=== PATIENT | female | born 1985 | race Caucasian/White ===

== ENCOUNTER 2019-09-10 18:48 | Emergency (ER) | payer OTHER ==
[~2019-09-10] VITALS: Ht 165.1 cm; Wt 59.0 kg
[~2019-09-10 18:48] MED LIST: HYDR-3165 PO; PENI500T PO
[2019-09-10 19:06] VITALS: BP 113/71
[2019-09-10] MEDS ORDERED: HYDROmorphone PF 1 MG/ML DISP.SYRIN IV ONE ×2 (19:15→20:45)
[2019-09-10] MEDS ORDERED: ONDANSETRON PF 4 MG/2 ML VIAL. IVP ONE (19:15)
[2019-09-10] MEDS ORDERED: IOHEXOL 300 MG/ML 50 ML VIAL. ONE (19:30)
[2019-09-10] MEDS ORDERED: IOHEXOL 300 MG/ML 50 ML VIAL. INT CAT ONE (19:30)
--- NOTE | 2019-09-10 19:53 | PHYS DOC ---
Past History Past Medical History: Anemia, Anxiety, Depression, Other Additional Past Medical Histor: bleeding stomach ulcers Past Surgical History: , Gastric Bypass, Tonsillectomy Alcohol Use: None Drug Use: None Adult General Chief Complaint Chief Complaint: WOUND CHECK HPI HPI 34-year-old female presents with concern over J-tube dislodgment. The patient was changing clothes earlier today when she actually caught the end of her tube on the close. He pulled out a couple of inches and tore the sutures out of one side. The other side is still intact. The patient has had abdominal pain since that time. She called the surgeon and they recommended she come in and have it evaluated because it was dislodgment have to be replaced surgically. Patient further complains of intense nausea, but denies fever, chills or vomiting. She has no other complaints at this time. Review of Systems Review of Systems Constitutional: Denies fever or chills [] Eyes: Denies change in visual acuity, redness, or eye pain [] HENT: Denies nasal congestion or sore throat [] Respiratory: Denies cough or shortness of breath [] Cardiovascular: No additional information not addressed in HPI [] GI: The J-tube, nausea. Denies abdominal pain, vomiting, bloody stools or diarrhea [] : Denies dysuria or hematuria [] Musculoskeletal: Denies back pain or joint pain [] Integument: Denies rash or skin lesions [] Neurologic: Denies headache, focal weakness or sensory changes [] Endocrine: Denies polyuria or polydipsia [] All other systems were reviewed and found to be within normal limits, except as documented in this note. Current Medications Current Medications Current Medications Medications (Trade) Dose Ordered Sig/Eder Start Time Stop Time Status Last Admin Dose Admin Hydromorphone HCl (Dilaudid) 1 mg 1X ONCE 09/10/19 19:15 09/10/19 19:33 DC Iohexol (Omnipaque 300 Mg/ml) 50 ml 1X ONCE 09/10/19 19:30 09/10/19 19:31 UNV Ondansetron HCl (Zofran) 4 mg 1X ONCE 09/10/19 19:15 09/10/19 19:33 DC Allergies Allergies Allergies Coded Allergies Type Severity Reaction Last Updated Verified No Known Drug Allergies 09/10/19 No Physical Exam Physical Exam Constitutional: Well developed, well nourished, no acute distress, non-toxic appearance. [] HENT: Normocephalic, atraumatic, bilateral external ears normal, oropharynx moist, no oral exudates, nose normal. [] Eyes: PERRLA, EOMI, conjunctiva normal, no discharge. [] Neck: Normal range of motion, no tenderness, supple, no stridor. [] Cardiovascular:Heart rate regular rhythm, no murmur [] Lungs & Thorax: Bilateral breath sounds clear to auscultation [] Abdomen: Bowel sounds normal, soft, mild tenderness, no masses, no pulsatile masses. J-tube appears to be in place externally. No sign of infection, pulled o ut sutures on the lateral side but intact on the medial. No obvious drainage.[] Skin: Warm, dry, no erythema, no rash. [] Back: No tenderness, no CVA tenderness. [] Extremities: No tenderness, no cyanosis, no clubbing, ROM intact, no edema. [] Neurologic: Alert and oriented X 3, normal motor function, normal sensory function, no focal deficits noted. [] Psychologic: Affect normal, judgement normal, mood normal. [] Current Patient Data Vital Signs Vital Signs Date Time Temp Pulse Resp B/P (MAP) Pulse Ox O2 Delivery O2 Flow Rate FiO2 09/10/19 19:06 98.2 83 16 100 Room Air EKG EKG [] Radiology/Procedures Radiology/Procedures [] Impressions: Pulmonary interpretation KUB with contrast: Contrast is seen throughout the J- tube and then into the jejunum. No obvious extravasation. Course & Med Decision Making Course & Med Decision Making Pertinent Labs and Imaging studies reviewed. (See chart for details) The patient's J-tube appears to be in place. I have given her 1 mg of Dilaudid and 4 mg of Zofran. Labs are pending. The patient's labs are unremarkable. Her G-tube appears to be in place. I have given her an additional milligram of Dilaudid and 25 mg of Phenergan. Prior to discharge home. The patient 1 [place] 7.5/325 to help her with pain overnight so she can sleep. The patient is feeling a bit better at this time. I will discharge her with a short course of [place] 5/325. She will follow up with her surgeon as soon as possible. [] Dragon Disclaimer Dragon Disclaimer This electronic medical record was generated, in whole or in part, using a voice recognition dictation system. Departure Departure: Impression: Primary Impression: Jejunostomy tube site pain Disposition: HOME, SELF-CARE Condition: STABLE Referrals: CLAUDIA ROMAN MD (PCP) Patient Instructions: Care of a Feeding Tube, [id number] Scripts Hydrocodone Bit/Acetaminophen (NORCO 5-325 TABLET) 1 Each Tablet 1 TAB PO PRN Q6HRS PRN for PAIN, #14 TAB 0 Refills Prov: KAILA HARRELL DO 09/10/19 KAILA HARRELL DO Sep 10, 2019 19:53
[2019-09-10 20:05] LABS: ALBUMIN 3.9 g/dL (3.4-5.0); ALBUMIN/GLOBULIN RATIO 1.1 (1.0-1.7); CALCIUM 8.8 mg/dL (8.5-10.1); CREATININE 0.7 mg/dL (0.6-1.0); GFR 95.2; POTASSIUM 4.1 mmol/L (3.5-5.1); TOTAL BILIRUBIN 0.2 mg/dL (0.2-1.0); TOTAL PROTEIN 7.5 g/dL (6.4-8.2)
[2019-09-10] MEDS ORDERED: PROMETHAZINE 25 MG TABLET. PO ONE (20:45)
[2019-09-10 21:53] LABS: BASO % 1 % (0-3); EOS # 0.3 x10^3/uL (0.0-0.7); EOS % 4 % (0-3); HEMATOCRIT 36.3 % (36.0-47.0); HEMOGLOBIN 11.9 g/dL (12.0-15.5); LYMPH # 2.3 x10^3/uL (1.0-4.8); LYMPH % 30 % (24-48); MEAN CORPUSCULAR HEMOGLOBIN 30 pg (25-35); MEAN CORPUSCULAR HGB CONC 33 g/dL (31-37); MEAN CORPUSCULAR VOLUME 91 fL (79-100); MONO # 0.6 x10^3/uL (0.0-1.1); MONO % 7 % (0-9); NEUT # 4.5 x10^3uL (1.8-7.7); NEUT % 58 % (31-73); PLATELET COUNT 163 x10^3/uL (140-400); RED CELL DISTRIBUTION WIDTH 13.3 % (11.5-14.5); WHITE BLOOD COUNT 7.8 x10^3/uL (4.0-11.0)
[2019-09-10] MEDS ORDERED: HYDR-3165 PO (22:07)
[2019-09-10] MEDS ORDERED: HYDROcodone/APAP 7.5/325MG 1 TAB TABLET PO ONE (22:30)
--- NOTE | 2019-09-11 00:05 | RAD ---
AP abdomen radiograph 09/10/2019 CLINICAL HISTORY: Jejunostomy tube. Possible displacement. AP digital radiographs of the abdomen was obtained as a c 13 catapult operator. 30 cc of Omnipaque were injected into the patient's jejunostomy tube by the cytotechnologist/histotechnologist. An AP supine digital radiograph of the abdomen was obtained immediately after this. A jejunostomy tube is seen extending from the left flank overlying the right lower quadrant abdomen. The abdominal bowel gas pattern is nonobstructive. Moderate stool seen throughout the colon. An IUD overlies the location of the uterus and pelvis. On the postcontrast radiograph contrast is seen opacifying small bowel loops in the right abdomen. No extravasation of contrast is seen. Very mild S-shaped curvature of the thoracolumbar spine is noted. IMPRESSION: The jejunostomy tube extends into the small bowel within the right abdomen. No extravasation of contrast is seen. Electronically signed by: Dez Peter MD (09/11/2019 12:02 AM) [facility]
== END 2019-09-10 22:25 | disposition home or self-care (01) ==
LOC: ER 18:48
DX: K94.19 Other complications of enterostomy (principal); R10.9 Unspecified abdominal pain; Z86.2 Personal history of diseases of the blood and blood-forming organs and certain disorders involving the immune mechanism; Z98.890 Other specified postprocedural states; Z98.84 Bariatric surgery status
CPT/HCPCS: 36415; 74018; 80053; 85025; 96374; 96375; 96376; 99285; J1170; J2405; Q0169; Q9967

== ENCOUNTER 2019-09-16 01:55 | Emergency (ER) | payer OTHER ==
[~2019-09-16] VITALS: Ht 165.1 cm; Wt 67.3 kg
--- NOTE | 2019-09-16 02:08 | PHYS DOC ---
Past History Past Medical History: Anemia, Anxiety, Bipolar, Depression, GERD, GI Bleed, Pneumonia, Other Additional Past Medical Histor: bleeding stomach ulcers Past Medical History Wt. loss Past Surgical History: , Gastric Bypass, Tonsillectomy, Other Past Surgical History Pt give hx of Multiple Gastric-abdomen surgeries, lap band surgery 2010, sleeve 2012, [place]-en-Y 2016, emergent laparoscopic due to gastric perforation secondary during EGD 07/2019. Smoking: Cigarettes Alcohol Use: None Drug Use: None Adult General Chief Complaint Chief Complaint: GI PROBLEM.. " I was doing pretty good.. I had the J tube for feedings post my last surgery for perforation during my follow up EGD.. I accident pulled some sutures.. the other day.. .but last night or this moring... I pulled it all out in my sleep... I having some pain and nausea.. the chief engineer production said to come to nearest ED and just get checked out..." HPI HPI Patient is a 34 year old female who presents with above hx and complaints of nausea, pain and lost of her J-tube. Pt gives hx that she had J tube placed post surgery after acute perforation during followup EGD. Pt. was using J tube for nutrition, but recent started back on po diet. Pt. draining small amount fluid at J-tube site. Patient has mild erythema at site. No active bleeding... Mild discomfort on palpation of site. Patient's last surgery was completed by Dr. Claudia Pearson after a gastric perforation on the week of August 10. Patient initially had a lap band in 2010, band slipped and required surgery, patient then had a sleeve placed in 2012, patient had recurrent ulcers, had repeat surgery in 2016 for Orlando-en-Y. Patient had problems with gastric ulcers, gastritis,, anemia, malnutrition, and generalized abdomen pain. Patient also has history of anxiety and depression. Pt. reportedly was advised by chief engineer production surgery to have site checked in local ED. The patient has scheduled follow-up at [facility] where procedure was done. Pt. did omit hx that she was seen at [facility] 09/15/2019, just prior to presenting here and was diagnosed with pneumonia. Pt. reportedly refused admission and left after one dose of antibiotics. Per Surgery chief engineer production advised pt. has hx of non-compliance. He advised she had CT at [facility] and it showed a lower Rt side pneumonia or atelectasis. No acute abdomen findings. Advised just dress the J-tube site. Some hx of possible narcotic seeking and or Munchausen behavior. Hx. pt .seen in multiple local clinics and hospital ED's. Review of Systems Review of Systems Constitutional: Denies fever or chills [] Eyes: Denies change in visual acuity, redness, or eye pain [] HENT: Denies nasal congestion or sore throat [] Respiratory: Denies cough or shortness of breath [] Cardiovascular: No additional information not addressed in HPI [] GI: complaints of localize J-tube site abdominal pain, nausea,. No vomiting, bloody stools or diarrhea [] : Denies dysuria or hematuria [] Musculoskeletal: Denies back pain or joint pain [] Integument: Denies rash or skin lesions [] Neurologic: Denies headache, focal weakness or sensory changes [] Endocrine: Denies polyuria or polydipsia [] All other systems were reviewed and found to be within normal limits, except as documented in this note. Family History Family History Noncontributory Current Medications Current Medications See nursing for home meds Allergies Allergies Allergies Coded Allergies Type Severity Reaction Last Updated Verified No Known Drug Allergies 09/10/19 No Physical Exam Physical Exam Constitutional: no acute distress, non-toxic appearance. [] HENT: Normocephalic, atraumatic, bilateral external ears normal, oropharynx moist, no oral exudates, nose normal. [] Eyes: PERRLA, EOMI, conjunctiva normal, no discharge. [] Neck: Normal range of motion, no tenderness, supple, no stridor. [] Cardiovascular:Heart rate regular rhythm, no murmur [] Lungs & Thorax: Bilateral breath sounds equal at apex on auscultation with a few scatted wheezes. Abdomen: Bowel sounds normal, soft, mild J-tube site tenderness and mild erythema, no masses, no pulsatile masses. [] J-tube site draining fluid. No bleeding. Old s surgery scars. Skin: Warm, dry, no erythema, no rash. [] Back: No tenderness, no CVA tenderness. [] Extremities: No tenderness, no cyanosis, no clubbing, ROM intact, no edema. No cording appreciated. Neurologic: Alert and oriented X 3, normal motor function, normal sensory function, no focal deficits noted. [] Psychologic: Anxious, judgement normal, mood normal. [] EKG EKG [] Radiology/Procedures Radiology/Procedures [ IMAGING REPORT Signed PATIENT: KARMEN LEE ACCOUNT: [id number] : 1985 LOCATION: ER AGE: 34 SEX: F EXAM STATUS: REG ER ORD. PHYSICIAN: SAMEER RAYMOND MD REASON: pain, hx perforation, sp surgery 08/10 PROCEDURE: CT ABD PELV W/ORAL&IV CONTRAST EXAM: CT Abdomen and Pelvis with IV contrast CLINICAL HISTORY: History of perforation post surgery 08/10. COMPARISON: 05/31/2016 TECHNIQUE: Helical CT of the abdomen and pelvis was performed following the administration of intravenous contrast. Axial, coronal and sagittal reformatted images were generated. PQRS compliance statement - One or more of the following individualized dose reduction techniques were utilized for this study: 1. Automated exposure control 2. Adjustment of the mA and/or kV according to patient size 3. Use of iterative reconstruction technique FINDINGS: Lower chest: Medial right lower lobe airspace opacities are seen likely developing consolidative process such as atelectasis. A 5 mm nodular opacity is seen along the right minor fissure. Abdomen and Pelvis: No focal liver lesion. High density material dependently within the gallbladder likely sludge. No biliary ductal dilatation. Pancreas is unremarkable. Spleen is normal in appearance. Adrenal glands are unremarkable. Symmetric nephrograms. No focal renal lesion. No hydronephrosis. No hydroureter. Bladder is unremarkable, filled with contrast. IUD is seen within the uterus. Small volume free pelvic fluid may be physiologic for this patient. No loculated abdominal or pelvic collection. No abdominal or pelvic lymphadenopathy by size criteria although a few mildly prominent retroperitoneal lymph nodes are seen. Postsurgical bowel changes are seen in the midabdomen. No small or large bowel dilatation. No free intraperitoneal gas. Bones: Osseous structures are grossly unremarkable. IMPRESSION: New airspace opacities are seen in the medial right lung base likely developing consolidation or atelectasis. Imaging follow-up to resolution is recommended. Surgical changes within the bowel are seen in the mid abdomen, without associated pneumoperitoneum. Small volume free pelvic fluid may be physiologic for this patient. No loculated abdominal or pelvic collection. Electronically signed by: Froylan Hernandez MD (09/16/2019 5:28 AM) [facility] [place] DICTATED AND SIGNED BY: FROYLAN HERNANDEZ MD DATE: 09/16/19527 CC: SAMEER RAYMOND MD; CLAUDIA ROMAN MD ~ ][place] [id number] IMAGING REPORT Signed PATIENT: KARMEN LEE ACCOUNT: [id number] : 1985 LOCATION: ER AGE: 34 SEX: F EXAM STATUS: REG ER ORD. PHYSICIAN: SAMEER RAYMOND MD REASON: pain, pulled out J tube... , pain, H/O RECENT CONTRAST EXAM PROCEDURE: ACUTE ABDOMEN SERIES EXAM: Frontal view of the chest, AP views of the abdomen in upright and supine positions. CLINICAL INDICATION: Recently pulled out J-tube COMPARISON: None. FINDINGS and IMPRESSION: The heart is not enlarged. Mediastinal and hilar contours are grossly unremarkable. airspace opacities are seen in the medial right lung base likely developing consolidation or atelectasis. No pleural effusion or pneumothorax. No abnormal small or large bowel dilatation. Moderate colonic stool content. No abnormal soft tissue mass effect. No suspicious calcifications are seen. No free intraperitoneal gas. IUD is seen within the pelvis. Electronically signed by: Froylan Hernandez MD (09/16/2019 4:49 AM) [facility] [place] DICTATED AND SIGNED BY: FROYLAN HERNANDEZ MD DATE: 09/16/199 CC: SAMEER RAYMOND MD; CLAUDIA ROMAN MD ~ Course & Med Decision Making Course & Med Decision Making Pertinent Labs and Imaging studies reviewed. (See chart for details). After discussing with pt. her omission of being at [facility] just before presenting here and need for complete information and hx when she presents for medical care. Pt. now requests discharge home. Patient to wear colostomy bag at J-tube site. Follow-up with her surgeon in schedule clinic. Clear liquids if having pain. If no pain, Continue her post surgery diet. Return if any concerns. Pt. will be discharge with Rx for Keflex and Flagyl. Flagyl added to her pneumonia tx due to past hx of C-dif. Impression: 1. Abdomen Pain 2. Pulled out J- Tube 3. Leukocytosis 17.4 with 80 Segs 4. Anemia Hgb 11.5 5. Thrombocytopenia 129 6. Hx. of Gastric By Pass surgeries 7. Constipation 8. Rt. Basilar Atelectasis vs Pneumonia. 9. Possible Narcotic Seeking & Munchausen- behaviors [] Dragon Disclaimer Dragon Disclaimer This electronic medical record was generated, in whole or in part, using a voice recognition dictation system. Departure Departure: Disposition: HOME/RESIDENCE PRIOR TO ADM Condition: STABLE Referrals: CLAUDIA ROMAN MD (PCP) Scripts Metronidazole (FLAGYL) 500 Mg Tablet 500 MG PO TID for Leukocytosis, Hx. Cdif for 10 Days, #30 TAB Prov: SAMEER RAYMOND MD 09/16/19 Cephalexin (KEFLEX) 500 Mg Capsule 500 MG PO TID for Pneumonia for 10 Days, BOTTLE Prov: SAMEER RAYMOND MD 09/16/19 Dragon Disclaimer This chart was dictated in whole or in part using Voice Recognition software in a busy, high-work load, and often noisy Emergency Department environment. It may contain unintended and wholly unrecognized errors or omissions. SAMEER RAYMOND MD Sep 16, 2019 02:08
[2019-09-16] MEDS ORDERED: IV RINGERS SOLUTION,LACTATED 1,000 ML IV SCH (02:09)
[2019-09-16] MEDS ORDERED: FAMOTIDINE 20 MG/2 ML VIAL IVP ONE (02:15)
[2019-09-16] MEDS ORDERED: ONDANSETRON PF 4 MG/2 ML VIAL. IVP ONE (02:15)
[2019-09-16 02:58] LABS: BASO % 0 % (0-3); EOS # 0.3 x10^3/uL (0.0-0.7); EOS % 2 % (0-3); HEMATOCRIT 36.7 % (36.0-47.0); HEMOGLOBIN 11.5 g/dL (12.0-15.5); LYMPH # 2.2 x10^3/uL (1.0-4.8); LYMPH % 13 % (24-48); MEAN CORPUSCULAR HEMOGLOBIN 29 pg (25-35); MEAN CORPUSCULAR HGB CONC 31 g/dL (31-37); MEAN CORPUSCULAR VOLUME 94 fL (79-100); MONO % 6 % (0-9); NEUT # 13.9 x10^3uL (1.8-7.7); NEUT % 80 % (31-73); PLATELET COUNT 129 x10^3/uL (140-400); RED BLOOD COUNT 3.92 x10^6/uL (3.50-5.40); RED CELL DISTRIBUTION WIDTH 13.8 % (11.5-14.5); WHITE BLOOD COUNT 17.4 x10^3/uL (4.0-11.0)
[2019-09-16 03:05] LABS: BILIRUBIN,URINE NEG (NEG); CLARITY,URINE CLEAR; COLOR,URINE YELLOW; GLUCOSE,URINE NEG (NEG); NITRITE,URINE NEG (NEG); RBC,URINE OCC /HPF (0-2); UROBILINOGEN,URINE 0.2 mg/dL (0.2 mg/dL)
[2019-09-16 03:06] LABS: BACTERIA,URINE 0 /HPF (0-FEW); SQUAMOUS EPITHELIAL CELL,UR MOD /LPF; WBC,URINE OCC /HPF (0-4)
[2019-09-16 03:10] LABS: ALBUMIN 3.3 g/dL (3.4-5.0); CALCIUM 8.2 mg/dL (8.5-10.1); CREATININE 0.6 mg/dL (0.6-1.0); DIRECT BILIRUBIN 0.1 mg/dL (0.0-0.2); GFR 113.8; POTASSIUM 3.3 mmol/L (3.5-5.1); TOTAL BILIRUBIN 0.2 mg/dL (0.2-1.0); TOTAL PROTEIN 6.8 g/dL (6.4-8.2)
[2019-09-16] MEDS ORDERED: IV RINGERS SOLUTION,LACTATED 1,000 ML IV ONE (03:30)
[2019-09-16] MEDS ORDERED: cefTRIAXone SODIUM 1 GM VIAL ONE (03:38)
[2019-09-16] MEDS ORDERED: IV NORMAL SALINE 50ML 50 ML ONE (03:38)
[2019-09-16 03:53] LABS: % EOS 3 % (0-5); % LYMPHS 13 % (24-48); % MONOS 4 % (0-10); % SEGS 80 % (35-66)
[2019-09-16 03:54] LABS: PLT ESTIMATE ADEQUATE (ADEQUATE)
[2019-09-16] MEDS ORDERED: VANCOMYCIN 1 GM VIAL. ONE (04:50)
[2019-09-16] MEDS ORDERED: IV NORMAL SALINE 250ML 250 ML ONE (04:50)
--- NOTE | 2019-09-16 04:52 | RAD ---
EXAM: Frontal view of the chest, AP views of the abdomen in upright and supine positions. CLINICAL INDICATION: Recently pulled out J-tube COMPARISON: None. FINDINGS and IMPRESSION: The heart is not enlarged. Mediastinal and hilar contours are grossly unremarkable. airspace opacities are seen in the medial right lung base likely developing consolidation or atelectasis. No pleural effusion or pneumothorax. No abnormal small or large bowel dilatation. Moderate colonic stool content. No abnormal soft tissue mass effect. No suspicious calcifications are seen. No free intraperitoneal gas. IUD is seen within the pelvis. Electronically signed by: Froylan Maki MD (09/16/2019 4:49 AM) [facility]
[2019-09-16] MEDS ORDERED: VANCOMYCIN 1 GM in IV NORMAL SALINE 250ML 250 ML IV ONE (05:00)
[2019-09-16] MEDS ORDERED: CONTRAST GIVEN MC PRN (05:00)
[2019-09-16] MEDS ORDERED: KETOROLAC 30 MG/ML VIAL. IVP ONE (05:00)
[2019-09-16] MEDS ORDERED: IOHEXOL 240 MG/ML 50ML VIAL. PO ONE (05:00)
[2019-09-16] MEDS ORDERED: IOHEXOL 300 MG/ML 75 ML VIAL. IV ONE (05:00)
[2019-09-16 05:18] VITALS: BP 85/46
[2019-09-16] MEDS ORDERED: METR500T PO (05:24)
[2019-09-16] MEDS ORDERED: CEPH-264 PO (05:24)
[2019-09-16] MEDS ORDERED: MAGNESIUM HYDROXIDE 2,400 MG/30 ML ORAL.SUSP. PO ONE (05:30)
--- NOTE | 2019-09-16 05:32 | RAD ---
EXAM: CT Abdomen and Pelvis with IV contrast CLINICAL HISTORY: History of perforation post surgery 08/10. COMPARISON: 05/31/2016 TECHNIQUE: Helical CT of the abdomen and pelvis was performed following the administration of intravenous contrast. Axial, coronal and sagittal reformatted images were generated. PQRS compliance statement - One or more of the following individualized dose reduction techniques were utilized for this study: 1. Automated exposure control 2. Adjustment of the mA and/or kV according to patient size 3. Use of iterative reconstruction technique FINDINGS: Lower chest: Medial right lower lobe airspace opacities are seen likely developing consolidative process such as atelectasis. A 5 mm nodular opacity is seen along the right minor fissure. Abdomen and Pelvis: No focal liver lesion. High density material dependently within the gallbladder likely sludge. No biliary ductal dilatation. Pancreas is unremarkable. Spleen is normal in appearance. Adrenal glands are unremarkable. Symmetric nephrograms. No focal renal lesion. No hydronephrosis. No hydroureter. Bladder is unremarkable, filled with contrast. IUD is seen within the uterus. Small volume free pelvic fluid may be physiologic for this patient. No loculated abdominal or pelvic collection. No abdominal or pelvic lymphadenopathy by size criteria although a few mildly prominent retroperitoneal lymph nodes are seen. Postsurgical bowel changes are seen in the midabdomen. No small or large bowel dilatation. No free intraperitoneal gas. Bones: Osseous structures are grossly unremarkable. IMPRESSION: New airspace opacities are seen in the medial right lung base likely developing consolidation or atelectasis. Imaging follow-up to resolution is recommended. Surgical changes within the bowel are seen in the mid abdomen, without associated pneumoperitoneum. Small volume free pelvic fluid may be physiologic for this patient. No loculated abdominal or pelvic collection. Electronically signed by: Froylan Maki MD (09/16/2019 5:28 AM) [facility] [id number]
[2019-09-16] MEDS ORDERED: MAGNESIUM HYDROXIDE 2,400 MG/30 ML ORAL.SUSP. ONE (05:56)
== END 2019-09-16 06:00 | disposition home or self-care (01) ==
LOC: ER 01:55
DX: K94.13 Enterostomy malfunction (principal); D72.829 Elevated white blood cell count, unspecified; D64.9 Anemia, unspecified; D69.6 Thrombocytopenia, unspecified; K59.00 Constipation, unspecified; K21.9 Gastro-esophageal reflux disease without esophagitis; F17.210 Nicotine dependence, cigarettes, uncomplicated; Z86.2 Personal history of diseases of the blood and blood-forming organs and certain disorders involving the immune mechanism; Z98.84 Bariatric surgery status; Z98.890 Other specified postprocedural states
CPT/HCPCS: 36415; 74022; 74177; 80048; 80076; 81001; 81025; 82150; 83605; 83690; 85007; 85025; 87040; 96365; 96367; 96368; 96375; 96376; 99285; J0696; J1885; J2405; J3370; J3490; J7050; J7120; Q9966; Q9967; 96361